=== PATIENT | female | born 2000 | race African-American/Black ===

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

== ENCOUNTER 2019-01-09 22:57 | Emergency (ER) | payer MEDICAID ==
[~2019-01-09] VITALS: Ht 170.2 cm; Wt 98.1 kg
[2019-01-09 22:59] VITALS: BP 144/96
[2019-01-09 23:58] LABS: BASOPHILS # (AUTO) 0.01 x10^3/uL (0-0.3); BASOPHILS % (AUTO) 0 % (0-1); EOSINOPHILS # (AUTO) 0.21 x10^3/uL (0-0.8); EOSINOPHILS % (AUTO) 3 % (1-7); LYMPHOCYTES # (AUTO) 0.97 x10^3/uL (1-6.1); LYMPHOCYTES % (AUTO) 13 % (22-44); MD NO; MEAN CORPUSCULAR HEMOGLOBIN 30.3 pg (27.0-34.8); MEAN CORPUSCULAR HGB CONC 32.7 g/dL (32.4-35.8); MEAN CORPUSCULAR VOLUME 92.6 fL (80-100); MEAN PLATELET VOLUME 8.8 fL (7.4-10.4); MONOCYTES # (AUTO) 0.67 x10^3/uL (0-1.4); MONOCYTES % (AUTO) 9 % (2-9); NEUTROPHILS # (AUTO) 5.72 x10^3/uL (1.8-8.0); NEUTROPHILS % (AUTO) 75 % (42-75); PLATELET COUNT 303 x10^3/uL (130-400); RED BLOOD COUNT 4.05 x10^6/uL (3.82-5.3); RED CELL DISTRIBUTION WIDTH 14.2 % (9.6-15.2)
[2019-01-10 00:11] LABS: ALBUMIN 3.2 g/dL (3.4-5.0); ANION GAP 3 mmol/L (5-15); CALCIUM 8.5 mg/dL (8.5-10.1); CHLORIDE 109 mmol/L (98-107); CREATININE 0.89 mg/dL (0.55-1.02)
[2019-01-10 00:15] LABS: TROPONIN I < 0.015 ng/mL (0.000-0.045)
[2019-01-10] MEDS ORDERED: KETOROLAC 60 MG/2 ML ONE (00:20)
[2019-01-10] MEDS ORDERED: KETOROLAC 30 MG/1 ML IM ONE (00:30)
--- NOTE | 2019-01-10 01:05 | NUR ---
pt d/c with d/c summary and scripts. all questions answered. pt ambulates to registration desk with steady gait for d/c home.
== END 2019-01-10 01:08 ==
LOC: ED 01-10 00:50
DX: R07.89 Other chest pain (principal); J02.8 Acute pharyngitis due to other specified organisms; B97.89 Other viral agents as the cause of diseases classified elsewhere; R06.02 Shortness of breath; R42 Dizziness and giddiness
CPT/HCPCS: 36415; 71046; 80048; 82040; 84484; 84703; 85025; 85379; 86308; 93005; 96372; 99284; J1885

== ENCOUNTER 2020-05-26 13:17 | Emergency (ER) | payer MEDICAID ==
[~2020-05-26] VITALS: Ht 170.2 cm; Wt 88.2 kg
--- NOTE | 2020-05-26 13:39 | NUR ---
pt complains of burning with urination pt ambulates with even steady gait.
--- NOTE | 2020-05-26 13:51 | NUR ---
Scant amount of urine walked down to lab, pt denies discharge, is on mensus. pt denies vaginal discharge. ERP aware.
[2020-05-26 14:02] LABS: MICROSCOPIC INDICATED
--- NOTE | 2020-05-26 14:40 | NUR ---
Assisted Dr. Mendiola with pelvic exam. Hand walked specimens to lab.
[2020-05-26 15:15] LABS: CLUE CELLS PRESENT (NONE SEEN); WET PREP WBCS NONE SEEN (FEW)
--- NOTE | 2020-05-26 15:43 | NUR ---
BREAK RN: PT RESTING IN ROOM. NO ACUT DISTRESS NOTED. CALL LIGHT IN PLACE. WILL CONTINUE TO MONITOR WHILE PRIMARY RN IS ON BREAK.
--- NOTE | 2020-05-26 15:44 | NUR ---
Lab results back. Chart up for ERP.
[2020-05-26] MEDS ORDERED: CEFTRIAXONE 250 MG IM ONE (16:00)
[2020-05-26] MEDS ORDERED: metroNIDAZOLE 500 MG TABLET PO ONE (16:00)
[2020-05-26] MEDS ORDERED: SODIUM CHLORIDE 0.9% 1,000ML IVBOLUS ONE (16:00)
[2020-05-26] MEDS ORDERED: AZITHROMYCIN 500 MG TABLET PO ONE (16:00)
[2020-05-26] MEDS ORDERED: AZITHROMYCIN 500 MG TABLET ONE (16:18)
[2020-05-26] MEDS ORDERED: metroNIDAZOLE 500 MG TABLET ONE (16:18)
[2020-05-26] MEDS ORDERED: CEFTRIAXONE 1,000 MG ONE (16:19)
--- NOTE | 2020-05-26 16:29 | NUR ---
pt medicated, awaiting 15 minutes then discharge
[2020-05-26 16:52] VITALS: BP 114/72
== END 2020-05-26 16:55 | disposition home or self-care (01) ==
LOC: ED 13:56
DX: A59.01 Trichomonal vulvovaginitis (principal)
CPT/HCPCS: 81001; 87086; 87210; 87491; 87591; 87808; 96372; 99283; J0696